=== PATIENT | female | born 1955 | race Caucasian/White ===

== ENCOUNTER 2021-02-04 10:01 | Emergency (ER) | payer BC, MEDICARE ==
[2021-02-04 10:08] VITALS: RESP 18
--- NOTE | 2021-02-04 10:31 | ED ---
Fall HPI - General Chief Complaint: Fall Stated Complaint: fall Source: patient, family, EMS, RN notes reviewed, old records reviewed Mode of arrival: EMS - History of Present Illness Initial Comments: 66-year-old white female patient, alert and oriented 4, presents to the emergency room via EMS with complaints of slipping in water on the tile in the house yesterday morning at 4 AM. Patient is laying on the cart in no apparent distress states that she's received relief with the fentanyl and [facility] given prior to arrival. Patient states that she did the splits and then landed on her right side. She states that she was having difficulty getting up and her had to help her. Her is at bedside, states that he is a physician. She states that she's been having increasing pain with ambulation and it starts in the right buttock and goes through her buttock down the back of her right leg. Patient is able to bend her right leg at a 90 angle and lifted off the bed instability but does complain of pain. Patient denies any incontinence or saddle anesthesia. But she has difficulty with internal or external rotation. She gets minimal relief with [facility] and pain is worse with movement or weightbearing. Patient does have history of obesity, hyperlipidemia, hypertension and she had a kidney transplant she states is in her left lower abdomen. She does take prednisone on a daily basis in addition to CellCept. She has no drug ALLERGIES. 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 yesterday morning) Fall Witnessed: no Place Fall Occurred: home Loss of Consciousness: none Prolonged Down Time?: no Symptoms Prior to Fall: none Location: buttocks Severity scale (1-10): 4 Quality: sharp, other (Shooting) Context: tripped/slipped (Slipped on water from standing landing on her buttock and right side) Associated Symptoms: denies - Related Data Home Medications Medication Instructions Recorded Confirmed Allopurinol [Zyloprim] 100 mg PO HS 02/04/21 02/04/21 Atenolol [Tenormin] 50 mg PO BID 02/04/21 02/04/21 Atorvastatin [Lipitor] 20 mg PO HS 02/04/21 02/04/21 Biotin 5 mg PO DAILY 02/04/21 02/04/21 Calcimate 800mg 1,600 mg PO BID 02/04/21 02/04/21 Enalapril [Vasotec] 15 mg PO BID 02/04/21 02/04/21 Ezetimibe [Zetia] 10 mg PO HS 02/04/21 02/04/21 Famotidine [Pepcid] 20 mg PO DAILY 02/04/21 02/04/21 Furosemide [Lasix] 20 mg PO HS 02/04/21 02/04/21 Furosemide [Lasix] 40 mg PO DAILY 02/04/21 02/04/21 Losartan [Cozaar] 50 mg PO BID 02/04/21 02/04/21 Magnesium Oxide [Mag-Ox] 400 mg PO HS 02/04/21 02/04/21 Multivitamins, Thera [Multivitamin 1 tab PO DAILY 02/04/21 02/04/21 (formulary)] Potassium Chloride ER [K-Dur 10] 20 meq PO BID 02/04/21 02/04/21 Solifenacin Succinate [Vesicare] 10 mg PO DAILY 02/04/21 02/04/21 amLODIPine [Norvasc] 2.5 mg PO DAILY 02/04/21 02/04/21 cycloSPORINE, MODIFIED [Neoral] 75 mg PO HS 02/04/21 02/04/21 cycloSPORINE, MODIFIED [Neoral] 100 mg PO DAILY 02/04/21 02/04/21 hydrALAZINE HCL [Apresoline] 50 mg PO BID 02/04/21 02/04/21 mycophenolate mofetiL [Cellcept] 1,000 mg PO BID 02/04/21 02/04/21 predniSONE 5 mg PO DAILY 02/04/21 02/04/21 Previous Rx's Medication Instructions Recorded HYDROcodone/APAP 5-325MG [[facility] 1 tab PO Q6HR PRN 3 Days #12 tab 02/04/21 5-325] predniSONE 50 mg PO DAILY #5 tab 02/04/21 Allergies Allergy/AdvReac Type Severity Reaction Status Date / Time No Known Allergies Allergy Verified 02/04/21 11:18 Review of Systems ROS Statement: Those systems with pertinent positive or pertinent negative responses have been documented in the HPI. ROS Other: All systems not noted in ROS Statement are negative. Past Medical History Past Medical History: Hyperlipidemia, Hypertension History of Any Multi-Drug Resistant Organisms: None Reported Past Surgical History: Breast Surgery Additional Past Surgical History / Comment(s): parathyroid surgery; kidney transplant; breast reduction Past Psychological History: No Psychological Hx Reported Smoking Status: Former smoker Past Alcohol Use History: Occasional Past Drug Use History: None Reported General Exam Limitations: no limitations General appearance: alert, in no apparent distress Head exam: Present: atraumatic, normocephalic, normal inspection Eye exam: Present: normal appearance, PERRL, EOMI. Absent: scleral icterus, conjunctival injection, periorbital swelling Pupils: Present: normal accommodation ENT exam: Present: normal exam, normal oropharynx, mucous membranes moist Neck exam: Present: normal inspection, full ROM. Absent: tenderness, meningismus, lymphadenopathy, thyromegaly Respiratory exam: Present: normal lung sounds bilaterally. Absent: respiratory distress, wheezes, rales, rhonchi, stridor, chest wall tenderness, accessory muscle use, decreased breath sounds, prolonged expiratory Cardiovascular Exam: Present: regular rate, normal rhythm, normal heart sounds. Absent: systolic murmur, diastolic murmur, rubs, gallop, clicks, JVD GI/Abdominal exam: Present: soft, normal bowel sounds. Absent: distended, tenderness, guarding, rebound, rigid Rectal exam: Present: deferred Extremities exam: Present: normal inspection, full ROM, normal capillary refill. Absent: tenderness, pedal edema, joint swelling, calf tenderness Right Hip exam: Present: normal inspection, ecchymosis (3 circular areas of redness to the right buttock), pelvic stability. Absent: full ROM, tenderness, swelling, abrasion, deformity, crepitus, dislocation, external rotation, internal rotation, shortening Upper Leg exam: Present: normal inspection, tenderness (Pain behind the right thigh buttock) Knee exam: Present: normal inspection, pain/laxity with valgus, pain/laxity with varus. Absent: swelling, abrasion, laceration Lower Leg exam: Present: normal inspection Ankle exam: Present: normal inspection Foot/Toe exam: Present: normal inspection Neurovascular tendon exam: Present: no vascular compromise. Absent: pulse def icit, abnormal cap refill, extremity cold to touch, pallor, foot drop Back exam: Present: normal inspection. Absent: tenderness, CVA tenderness (R), CVA tenderness (L), muscle spasm, paraspinal tenderness, vertebral tenderness, rash noted Expanded Back exam: Absent: saddle anesthesia Back exam: Positive Straight Leg Raise: Right, Negative Straight Leg Raising: Left Neurological exam: Present: alert, oriented X3, CN II-XII intact Psychiatric exam: Present: normal affect, normal mood Skin exam: Present: warm, dry, intact, normal color. Absent: rash, cyanosis, diaphoretic, erythema Course Vital Signs 02/04/21 10:02 Temperature 98.2 F Pulse Rate 66 Respiratory 18 Rate Blood Pressure 119/65 O2 Sat by Pulse 93 L Oximetry Medical Decision Making - Medical Decision Making Patient has no history of pre-existing back problems. She has no saddle anesthesia or loss of bowel or bladder incontinence. She has no history of cancers. Denies fevers, nausea vomiting or diarrhea. There is no evidence of foot drop or any other neuro deficits. Lumbar spine shows facet arthropathy with mid to lower lumbar spine with multilevel degenerative disc disease but no vertebral fracture collapse or malalignment. Pelvis and right hip with no osseous abnormalities seen. The SI joints appear symmetric and intact. The pubic symphysis shows mild degenerative spurring. There is no acute fracture or subluxation or dislocation. Due to the mechanism with patient states during the "splits" this is likely musculoskeletal. states that a short dose of steroids and [facility] with follow-up to ortho is an agreeable plan of care. Case discussed with Dr. Adorno. Disposition Clinical Impression: Musculoskeletal back pain, Fall Disposition: HOME SELF-CARE Condition: Fair Instructions (If sedation given, give patient instructions): Fall Prevention (ED) Additional Instructions: Take the prednisone and [facility] as prescribed. Follow-up with orthopedics this week. Return to the emergency room with worsening pain, any numbness or tingling or inability to hold your urine or bowels. Prescriptions: HYDROcodone/APAP 5-325MG [[facility] 5-325] 1 tab PO Q6HR PRN 3 Days #12 tab PRN Reason: Pain predniSONE 50 mg PO DAILY #5 tab Is patient prescribed a controlled substance at d/c from ED?: Yes Referrals: Hansel Wilde MD [Primary Care Provider] - 1-2 days Reza Huang PAC [PHYSICIAN [employer]] - 1-2 days Time of Disposition: 12:03
--- NOTE | 2021-02-04 11:25 | XR ---
EXAMINATION TYPE: XR lumbosacral spine 5 views XR AP pelvis and 2 views right hip DATE OF EXAM: 02/04/2021 Comparison: None Clinical History: 66-year-old female lower back pain and right hip pain after fall Findings: Lumbar spine: 5 lumbar type vertebral bodies. Facet arthropathy mid to lower lumbar spine. Mild multilevel degenera tive disc disease. Vertebral body heights are preserved and alignment is maintained. Pelvis and right hip: SI joints appear symmetric and intact as does the pubic symphysis. Mild degenerative spurring at the pubic symphysis. Hips are symmetric and intact. No acute fracture, subluxation, dislocation seen. Mul tiple pelvic phleboliths. Impression: 1. Lumbar spine: Facet arthropathy mid to lower lumbar spine. Mild multilevel degenerative disc disea se. No vertebral compression collapse or malalignment. 2. Pelvic and right hip: No acute osseous abnormality seen.
[2021-02-04] MEDS ORDERED: methylPREDNISolone SOD SUCCI 125 MG/2 ML VIAL IV STA (12:03)
[2021-02-04 12:21] VITALS: BP 111/67; PULSE 64; TEMP 98.7
== END 2021-02-04 12:38 | disposition home or self-care (01) ==
LOC: EC 10:01
DX: M54.5 Low back pain (principal); M25.551 Pain in right hip; I10 Essential (primary) hypertension; E78.5 Hyperlipidemia, unspecified; Z87.891 Personal history of nicotine dependence; W01.0XXA Fall on same level from slipping, tripping and stumbling without subsequent striking against object, initial encounter; Y92.009 Unspecified place in unspecified non-institutional (private) residence as the place of occurrence of the external cause
CPT/HCPCS: 72110; 73502; 99284; 96374; J2930

== ENCOUNTER → 2024-03-07 | Outpatient (CLI) | payer MEDICARE, BC | END | disposition home or self-care (01) | LOC: LABPRL 09:17 | PROVIDERS: ATTEND Nurse Practitioner Family | DX: I10 Essential (primary) hypertension | CPT/HCPCS: 80053; 80061; 82043; 82306; 82570; 82607; 83036; 83735; 84443; 85025 ==

== ENCOUNTER 2024-06-21 16:34 | Observation (INO) | payer MEDICARE, BC ==
--- NOTE | 2024-06-21 16:54 | ED ---
General Adult HPI - General Chief complaint: Shortness of Breath Stated complaint: SOB Time Seen by Provider: 06/21/24 16:54 Source: patient Mode of arrival: ambulatory - History of Present Illness Initial comments: 69-year-old female presenting with chief complaint of shortness of breath. This has been ongoing throughout the day today. States that earlier when she was feeling short of breath she used her home pulse ox and noted that she was 82%. It took a while to get back up into the 90s while she was resting. Patient has had a cough for the last 3 weeks, has been a dry cough. She has swelling to the bilateral lower extremities, she is currently on Lasix. She has no chest pain. Patient does have history of kidney transplant back in 2000, also currently has breast cancer and is receiving oral chemo. No fever. No abdominal pain, nausea, vomiting. No palpitations or dizziness. - Related Data Home Medications Medication Instructions Recorded Confirmed Atorvastatin [Lipitor] 20 mg PO HS 02/04/21 09/25/22 Calcimate 800mg 1,600 mg PO BID 02/04/21 09/25/22 Enalapril [Vasotec] 15 mg PO BID 02/04/21 09/25/22 Ezetimibe [Zetia] 10 mg PO HS 02/04/21 09/25/22 Furosemide [Lasix] 20 mg PO HS 02/04/21 09/25/22 Furosemide [Lasix] 40 mg PO DAILY 02/04/21 09/25/22 Losartan [Cozaar] 50 mg PO BID 02/04/21 09/25/22 Magnesium Oxide [Mag-Ox] 400 mg PO HS 02/04/21 09/25/22 Potassium Chloride ER [K-Dur 10] 20 meq PO DAILY 02/04/21 09/25/22 Solifenacin Succinate [Vesicare] 10 mg PO DAILY 02/04/21 09/25/22 allopurinoL [Zyloprim] 100 mg PO HS 02/04/21 09/25/22 amLODIPine [Norvasc] 2.5 mg PO DAILY 02/04/21 09/25/22 atenoloL [Tenormin] 50 mg PO BID 02/04/21 09/25/22 cycloSPORINE, MODIFIED [Neoral] 100 mg PO BID 02/04/21 09/25/22 hydrALAZINE HCL [Apresoline] 50 mg PO TID 02/04/21 09/25/22 predniSONE 5 mg PO DAILY 02/04/21 09/25/22 Multivit-Min/FA/Lycopen/Lutein 1 tab PO DAILY 09/25/22 09/25/22 [Centrum Silver Tablet] Potassium Chloride ER [K-Dur 10] 30 meq PO HS 09/25/22 09/25/22 mycophenolate mofetiL [Cellcept] 750 mg PO BID 09/25/22 09/25/22 Previous Rx's Medication Instructions Recorded Amoxic-Pot Clav 875-125Mg 1 tab PO Q12HR 10 Days #20 tab 09/25/22 [Augmentin 875-125] Allergies Allergy/AdvReac Type Severity Reaction Status Date / Time No Known Allergies Allergy Verified 06/21/24 16:45 Review of Systems ROS Statement: Those systems with pertinent positive or pertinent negative responses have been documented in the HPI. ROS Other: All systems not noted in ROS Statement are negative. Past Medical History Past Medical History: Hyperlipidemia, Hypertension Additional Past Medical History / Comment(s): kidney dx History of Any Multi-Drug Resistant Organisms: None Reported Past Surgical History: Breast Surgery Additional Past Surgical History / Comment(s): parathyroid surgery; kidney transplant; breast reduction. rotator cuff sx. breast ca lump removed left side Past Psychological History: No Psychological Hx Reported Smoking Status: Former smoker Past Alcohol Use History: Occasional Past Drug Use History: None Reported General Exam - General Exam Comments Initial Comments: Visual Physical Exam Vital signs reviewed General: Well-appearing, nontoxic, no acute distress. Head: Normocephalic, atraumatic Eyes: PERRLA, EOMI ENT: Airway patent Chest: Nonlabored breathing Skin: No visual rash, normal skin tone Neuro: Alert and oriented 3 Musculoskeletal: No gross abnormalities General appearance: alert, in no apparent distress Head exam: Present: atraumatic, normocephalic, normal inspection Eye exam: Present: normal appearance, EOMI Neck exam: Present: normal inspection. Absent: meningismus Respiratory exam: Present: rales (Bases). Absent: respiratory distress, wheezes, rhonchi, stridor Cardiovascular Exam: Present: regular rate, normal rhythm, normal heart sounds. Absent: systolic murmur, diastolic murmur, rubs, gallop, clicks Extremities exam: Present: pedal edema Neurological exam: Present: alert, oriented X3 Psychiatric exam: Present: normal affect, normal mood Skin exam: Present: warm, dry Course Vital Signs 06/21/24 06/21/24 06/21/24 16:40 20:40 22:01 Temperature 97.9 F 97.9 F Pulse Rate 77 65 63 Respiratory 18 16 16 Rate Blood Pressure 169/82 138/71 117/67 O2 Sat by Pulse 95 95 95 Oximetry Medical Decision Making - Medical Decision Making I performed the quick note portion of this visit, electronically signed Christine Bailon PA-C Was pt. sent in by a medical professional or institution (, [facility], [employer]ATE PREPARER APPRENTICE, urgent care, hospital, or senior care...) When possible be specific @ -No Did you speak to anyone other than the patient for history (EMS, parent, family, police, friend...)? What history was obtained from this source @ -No Did you review nursing and triage notes (agree or disagree)? Why? @ -I reviewed and agree with nursing and triage notes Were old charts reviewed (outside hosp., previous admission, EMS record, old EKG, old radiological studies, urgent care reports/EKG's, senior care records)? Report findings @ -No old charts were reviewed Differential Diagnosis (chest pain, altered mental status, abdominal pain women, abdominal pain men, vaginal bleeding, weakness, fever, dyspnea, syncope, headache, dizziness, GI bleed, back pain, seizure, CVA, palpatations, mental health, musculoskeletal)? @ -MDM Differential Dyspnea: Coronary syndrome, arrhythmia, tamponade, asthma, COPD, pulmonary embolism, pneumonia, pneumothorax, pulmonary effusion, anaphylaxis, diabetic ketoacidosis, flailed chest, pulmonary contusion, diaphragmatic rupture, anemia, neur omuscular this is not meant to be an all-inclusive list. EKG interpreted by me (3pts min.). @ -EKG shows sinus rhythm ventricular rate 69. ID interval 190. QRS 97. QT 395. QTc 414. X-rays interpreted by me (1pt min.). @ -Chest x-ray shows minimally mild pulmonary vascular congestive changes CT interpreted by me (1pt min.). @ -None done U/S interpreted by me (1pt. min.). @ -None done What testing was considered but not performed or refused? (CT, X-rays, U/S, labs)? Why? @ -None What meds were considered but not given or refused? Why? @ -None Did you discuss the management of the patient with other professionals (professionals i.e. , PA, [employer]ATE PREPARER APPRENTICE, lab, RT, psych nurse, older adult social work specialist, play reader, teacher, employment officer, clinical case manager)? Give summary @ -I spoke with Marily Craig from [facility] who accepts admission Was smoking cessation discussed for >3mins.? @ -No Was critical care preformed (if so, how long)? @ -No Were there social determinants of health that impacted care today? How? (Homelessness, low income, unemployed, alcoholism, drug addiction, transportation, low edu. Level, literacy, decrease access to med. care, senior living, rehab)? @ -No Was there de-escalation of care discussed even if they declined (Discuss DNR or withdrawal of care, Hospice)? DNR status @ -No What co-morbidities impacted this encounter? (DM, HTN, Smoking, COPD, CAD, Cancer, CVA, ARF, Chemo, Hep., AIDS, mental health diagnosis, sleep apnea, morbid obesity)? @ -None Was patient admitted / discharged? Hospital course, mention meds given and route, prescriptions, significant lab abnormalities, going to OR and other pertinent info. @ -69-year-old female presenting with chief complaint of dyspnea, worse on exertion. Admits to lower extremity swelling. No history of CHF. On exam there is pitting edema of the bilateral lower extremities. There are some rales heard at the bases of the lung ramon. Chest x-ray shows mild pulmonary vascular congestion changes. Negative troponin. BNP 205. Ambulatory oxygen saturation is obtained, patient does drop to 92% and feels winded. Patient would feel most comfortable having an observation stay to ensure her symptoms do not get worse. I believe this is reasonable. She will be admitted, I discussed this case with my attending Dr. Ramirez Undiagnosed new problem with uncertain prognosis? @ -No Drug Therapy requiring intensive monitoring for toxicity (Heparin, Nitro, Insulin, Cardizem)? @ -No Were any procedures done? @ -No Diagnosis/symptom? @ -CHF, fluid overload Acute, or Chronic, or Acute on Chronic? @ -Acute Uncomplicated (without systemic symptoms) or Complicated (systemic symptoms)? @ -Complicated Side effects of treatment? @ -No Exacerbation, Progression, or Severe Exacerbation? @ -No Poses a threat to life or bodily function? How? (Chest pain, [place], [place], pneumonia, PE, COPD, DKA, ARF, appy, cholecystitis, CVA, Diverticulitis, Homicidal, Suicidal, threat to staff... and all critical care pts) @ -Yes - Lab Data Result diagrams: 06/21/24 17:16 06/21/24 17:16 Lab Results 06/21/24 06/21/24 06/21/24 Range/Units 17:16 17:16 17:16 WBC 5.8 (3.8-10.6) k/uL RBC 4.36 (3.80-5.40) m/uL Hgb 12.9 (11.4-16.0) gm/dL Hct 40.1 (34.0-46.0) % MCV 91.9 (80.0-100.0) fL MCH 29.7 (25.0-35.0) pg MCHC 32.3 (31.0-37.0) g/dL RDW 13.3 (11.5-15.5) % Plt Count 240 (150-450) k/uL MPV 7.2 Sodium 140 (137-145) mmol/L Potassium 4.1 (3.5-5.1) mmol/L Chloride 104 (98-107) mmol/L Carbon Dioxide 28 (22-30) mmol/L Anion Gap 8 mmol/L BUN 27 H (7-17) mg/dL Creatinine 1.11 H (0.52-1.04) mg/dL Est GFR (CKD-EPI)AfAm 60 (>60 ml/min/1.73 sqM) Est GFR (CKD-EPI)NonAf 52 (>60 ml/min/1.73 sqM) Glucose 151 H (74-99) mg/dL Calcium 9.2 (8.4-10.2) mg/dL Total Bilirubin 0.4 (0.2-1.3) mg/dL AST 30 (14-36) U/L ALT 26 (4-34) U/L Alkaline Phosphatase 94 (38-126) U/L Troponin I <0.012 (0.000-0.034) ng/mL NT-Pro-B Natriuret Pep 205 pg/mL Total Protein 6.7 (6.3-8.2) g/dL Albumin 4.3 (3.5-5.0) g/dL Disposition Clinical Impression: Congestive heart failure Disposition: ADMITTED IP TO THIS HOSP Condition: Fair Time of Disposition: 21:44
--- NOTE | 2024-06-21 17:36 | XR ---
EXAMINATION TYPE: XR chest 2V DATE OF EXAM: 06/21/2024 5:31 PM COMPARISON: None available. CLINICAL INDICATION: Female, 69 years old with history of sob; [facility] TECHNIQUE: XR chest 2V Frontal and lateral views of the chest. FINDINGS: Cardiomegaly. No acute focal consolidation. Mild pulmonary vascular congestion. No sizable pleural effusion. Thoracic spine degenerative changes. No pneumothorax. IMPRESSION: Minimally mild pulmonary vascular congestive changes. [facility], , 06/21/2024 5:34 PM
[2024-06-21 17:52] LABS: HCT 40.1 % (34.0-46.0); HGB 12.9 gm/dL (11.4-16.0); MCH 29.7 pg (25.0-35.0); MCHC 32.3 g/dL (31.0-37.0); MCV 91.9 fL (80.0-100.0); Mean Platelet Volume 7.2; Platelet Count 240 k/uL (150-450); RBC 4.36 m/uL (3.80-5.40); RDW 13.3 % (11.5-15.5); WBC 5.8 k/uL (3.8-10.6)
[2024-06-21 18:01] LABS: ALT 26 U/L (4-34); AST 30 U/L (14-36); African American GFR (CKD) 60 (>60 ml/min/1.73 sqM); Albumin 4.3 g/dL (3.5-5.0); Alkaline Phosphatase 94 U/L (38-126); Anion Gap 8 mmol/L; Blood Urea Nitrogen 27 mg/dL (7-17); Calcium 9.2 mg/dL (8.4-10.2); Carbon Dioxide 28 mmol/L (22-30); Chloride 104 mmol/L (98-107); Glucose 151 mg/dL (74-99); Non-African American GFR(CKD) 52 (>60 ml/min/1.73 sqM); Potassium 4.1 mmol/L (3.5-5.1); Sodium 140 mmol/L (137-145); Total Bilirubin 0.4 mg/dL (0.2-1.3); Total Protein 6.7 g/dL (6.3-8.2)
[2024-06-21 18:11] LABS: NT-Pro-B-Type Natriuretic Pept 205 pg/mL
[2024-06-21] MEDS: FUROSEMIDE 10 MG/ML 4 ML VIAL IV STA (21:39)
[2024-06-21] MEDS ORDERED: NALOXONE 0.4 MG/ML 1 ML VIAL IV PRN (21:43)
--- NOTE | 2024-06-22 11:04 | P.CRDCN ---
History of Present Illness Consult date: 06/22/24 History of present illness: HISTORY OF PRESENTING ILLNESS 69-year-old female with past medical history of renal transplant, breast cancer s/p lumpectomy and lymph node removed from the left side, who recently had right shoulder rotator cuff repair surgery. This time she presented the hospital because she noticed that she was having swelling in bilateral lower extremity for 3 to 4 days along with associated dyspnea on exertion, shortness of breath and hypoxia when she noticed her pulse ox at home. ECG shows sinus rhythm, She shows me a photograph of her legs which showed significant swelling in the legs. She reports improvement of them with 1 dose of IV Lasix. REVIEW OF SYSTEMS 14 point review of system is negative except what is mentioned above in HPI. PHYSICAL EXAMINATION Vital signs reviewed. Head: Normocephalic. Eyes: Sclerae nonicteric. Neck: Brisk carotid upstroke, no jugular venous distention. Lungs: Clear to auscultation. Heart: Regular rate and rhythm, S1-S2, no S3, no murmur or rub. Abdomen: Soft nontender, positive bowel sounds. Extremities: 1+ pitting edema Neuro: Alert, oritented, no focal deficits. Detailed neuro exam was not perfor med. ASSESSMENT Acute hypoxic respiratory failure Bilateral lower extremity edema suspect CHF exacerbation Recent rotator cuff repair surgery Status post breast cancer lumpectomy with left side lymph node resection. Status post chest radiation S/p renal transplant PLAN Appreciate recommendations from nephrology team Continue diuretics Continue renal transplant medications Continue Lipitor, Zetia, losartan Obtain echocardiogram Obtain labs, troponin, NT proBNP, lipids, HbA1c, TSH, admission level Obtain records from Kevin Mchugh MD, [facility], [place] Thank you for allowing [facility] to participate in this patient's care. Feel free to reach out in case of any followup questions. Past Medical History Past Medical History: Hyperlipidemia, Hypertension Additional Past Medical History / Comment(s): kidney dx History of Any Multi-Drug Resistant Organisms: None Reported Past Surgical History: Breast Surgery Additional Past Surgical History / Comment(s): parathyroid surgery; kidney transplant; breast reduction. rotator cuff sx. breast ca lump removed left side Past Psychological History: No Psychological Hx Reported Smoking Status: Former smoker Past Alcohol Use History: Occasional Past Drug Use History: None Reported Medications and Allergies Home Medications Medication Instructions Recorded Confirmed Type Atorvastatin [Lipitor] 20 mg PO HS 02/04/21 06/22/24 History Calcimate 800mg 1,600 mg PO BID 02/04/21 06/22/24 History Enalapril [Vasotec] 15 mg PO BID 02/04/21 06/22/24 History Ezetimibe [Zetia] 10 mg PO HS 02/04/21 06/22/24 History Furosemide [Lasix] 20 mg PO HS 02/04/21 06/22/24 History Furosemide [Lasix] 40 mg PO DAILY 02/04/21 06/22/24 History Losartan [Cozaar] 50 mg PO BID 02/04/21 06/22/24 History allopurinoL [Zyloprim] 100 mg PO HS 02/04/21 06/22/24 History atenoloL [Tenormin] 50 mg PO BID 02/04/21 06/22/24 History cycloSPORINE, MODIFIED [Neoral] 125 mg PO DAILY 02/04/21 06/22/24 History hydrALAZINE HCL [Apresoline] 50 mg PO TID@0800,1400,2100 02/04/21 06/22/24 History predniSONE 5 mg PO DAILY 02/04/21 06/22/24 History Multivit-Min/FA/Lycopen/Lutein 1 tab PO DAILY 09/25/22 06/22/24 History [Centrum Silver Tablet] mycophenolate mofetiL [Cellcept] 500 mg PO BID 09/25/22 06/22/24 History ALPRAZolam [Xanax] 0.25 mg PO DAILY PRN 06/22/24 06/22/24 History Famotidine [Pepcid] 20 mg PO HS 06/22/24 06/22/24 History Letrozole 2.5 mg PO DAILY 06/22/24 06/22/24 History Mirabegron [Myrbetriq] 50 mg PO DAILY 06/22/24 06/22/24 History Potassium Chloride 20 meq PO BID 06/22/24 06/22/24 History Sertraline [Zoloft] 50 mg PO HS 06/22/24 06/22/24 History amLODIPine [Norvasc] 7.5 mg PO DAILY 06/22/24 06/22/24 History cycloSPORINE, MODIFIED [Neoral] 100 mg PO HS 06/22/24 06/22/24 History Allergies Allergy/AdvReac Type Severity Reaction Status Date / Time No Known Allergies Allergy Verified 06/22/24 10:27 Physical Exam Vitals: Vital Signs Temp Pulse Pulse Resp BP BP Pulse Ox 06/22/24 06:55 98.6 F 67 16 125/84 93 L 06/22/24 02:00 98.1 F 74 17 112/70 93 L 06/21/24 23:57 98.2 F 72 17 150/79 97 06/21/24 22:01 63 16 117/67 95 06/21/24 20:40 97.9 F 65 16 138/71 95 06/21/24 16:40 97.9 F 77 18 169/82 95 Intake and Output 06/21/24 06/22/24 06/22/24 22:59 06:59 14:59 Intake Total 118 Balance 118 Intake: Oral 118 Other: # Voids 1 Weight 95.254 kg 95.254 kg Results 06/21/24 17:16 06/21/24 17:16 Cardiac Enzymes 06/21/24 06/21/24 Range/Units 17:16 17:16 AST 30 (14-36) U/L Troponin I <0.012 (0.000-0.034) ng/mL CBC 06/21/24 Range/Units 17:16 WBC 5.8 (3.8-10.6) k/uL RBC 4.36 (3.80-5.40) m/uL Hgb 12.9 (11.4-16.0) gm/dL Hct 40.1 (34.0-46.0) % Plt Count 240 (150-450) k/uL Comprehensive Metabolic Panel 06/21/24 Range/Units 17:16 Sodium 140 (137-145) mmol/L Potassium 4.1 (3.5-5.1) mmol/L Chloride 104 (98-107) mmol/L Carbon Dioxide 28 (22-30) mmol/L BUN 27 H (7-17) mg/dL Creatinine 1.11 H (0.52-1.04) mg/dL Glucose 151 H (74-99) mg/dL Calcium 9.2 (8.4-10.2) mg/dL AST 30 (14-36) U/L ALT 26 (4-34) U/L Alkaline Phosphatase 94 (38-126) U/L Total Protein 6.7 (6.3-8.2) g/dL Albumin 4.3 (3.5-5.0) g/dL Current Medications Generic Name Dose Route Start Last Admin Trade Name Freq PRN Reason Stop Dose Admin Naloxone HCl 0.2 mg 06/21/24 21:43 Naloxone 0.4 Mg/Ml 1 Ml Vial IV Q2M PRN Opioid Reversal Intake and Output 06/21/24 06/22/24 06/22/24 22:59 06:59 14:59 Intake Total 118 Balance 118 Intake: Oral 118 Other: # Voids 1 Weight 95.254 kg 95.254 kg 06/21/24 17:16 06/21/24 17:16
[2024-06-22] MEDS ORDERED: ALPRAZolam 0.25 MG TAB PO PRN (12:05)
[2024-06-22] MEDS: SERTRALINE 50 MG TAB PO SCH (19:45)
[2024-06-22] MEDS: atenoloL 50 MG TAB PO SCH (19:45)
[2024-06-22] MEDS: EZETIMIBE 10 MG TAB PO SCH (19:45)
[2024-06-22] MEDS: allopurinoL 100 MG TAB PO SCH (19:46)
[2024-06-22] MEDS: ATORVASTATIN 20 MG TAB PO SCH (19:46)
[2024-06-22] MEDS: FUROSEMIDE 10 MG/ML 2 ML VIAL IV SCH (19:46)
[2024-06-22] MEDS: FAMOTIDINE 20 MG TAB PO SCH (19:46)
--- NOTE | 2024-06-22 20:04 | P.HPIM ---
History of Present Illness Patient is a pleasant 69 years old female with past medical history of multiple medical problems occluding hypertension, hyperlipidemia, history of kidney transplant and chronic kidney disease Presents because of shortness of breath and bilateral leg swelling. It has been going on for few days Patient denies chest pain No GI/ symptoms. No headache dizziness weakness or numbness Also patient is non-smoker no alcohol no illicit drugs Her vital stable, her oxygen was required on admission but currently she is saturating 96% on room air. She is afebrile Labs including CBC, BMP, LFT and troponin all are negative. Creatinine slightly borderline at 1.1 proBNP is 205 Chest x-ray showing cardiomegaly with pulmonary vascular congestion, looks mild. But also there is some COPD changes EKG showing sinus rhythm at [address]-T changes Review of Systems Review of systems CONSTITUTIONAL: No fever, no malaise, no fatigue. HEENT: No recent visual problems or hearing problems. Denied any sore throat. CARDIOVASCULAR: No orthopnea, PND, no palpitations, no syncope. PULMONARY: No chest wall tenderness, no hemoptysis. GASTROINTESTINAL: No diarrhea, no nausea, no vomiting, no abdominal pain. Normoactive bowel sounds. NEUROLOGICAL: No headaches, no weakness, no numbness. HEMATOLOGICAL: Denies any bleeding or petechiae. GENITOURINARY: Denies any burning micturition, frequency, or urgency. MUSCULOSKELETAL/RHEUMATOLOGICAL: Denies any joint pain, swelling, or any muscle pain. ENDOCRINE: Denies any polyuria or polydipsia. Past Medical History Past Medical History: Hyperlipidemia, Hypertension Additional Past Medical History / Comment(s): kidney dx History of Any Multi-Drug Resistant Organisms: None Reported Past Surgical History: Breast Surgery Additional Past Surgical History / Comment(s): parathyroid surgery; kidney transplant; breast reduction. rotator cuff sx. breast ca lump removed left side Past Psychological History: No Psychological Hx Reported Smoking Status: Former smoker Past Alcohol Use History: Occasional Past Drug Use History: None Reported Medications and Allergies Home Medications Medication Instructions Recorded Confirmed Type Atorvastatin [Lipitor] 20 mg PO HS 02/04/21 06/22/24 History Calcimate 800mg 1,600 mg PO BID 02/04/21 06/22/24 History Enalapril [Vasotec] 15 mg PO BID 02/04/21 06/22/24 History Ezetimibe [Zetia] 10 mg PO HS 02/04/21 06/22/24 History Furosemide [Lasix] 20 mg PO HS 02/04/21 06/22/24 History Furosemide [Lasix] 40 mg PO DAILY 02/04/21 06/22/24 History Losartan [Cozaar] 50 mg PO BID 02/04/21 06/22/24 History allopurinoL [Zyloprim] 100 mg PO HS 02/04/21 06/22/24 History atenoloL [Tenormin] 50 mg PO BID 02/04/21 06/22/24 History cycloSPORINE, MODIFIED [Neoral] 125 mg PO DAILY 02/04/21 06/22/24 History hydrALAZINE HCL [Apresoline] 50 mg PO TID@0800,1400,2100 02/04/21 06/22/24 History predniSONE 5 mg PO DAILY 02/04/21 06/22/24 History Multivit-Min/FA/Lycopen/Lutein 1 tab PO DAILY 09/25/22 06/22/24 History [Centrum Silver Tablet] mycophenolate mofetiL [Cellcept] 500 mg PO BID 09/25/22 06/22/24 History ALPRAZolam [Xanax] 0.25 mg PO DAILY PRN 06/22/24 06/22/24 History Famotidine [Pepcid] 20 mg PO HS 06/22/24 06/22/24 History Letrozole 2.5 mg PO DAILY 06/22/24 06/22/24 History Mirabegron [Myrbetriq] 50 mg PO DAILY 06/22/24 06/22/24 History Potassium Chloride 20 meq PO BID 06/22/24 06/22/24 History Sertraline [Zoloft] 50 mg PO HS 06/22/24 06/22/24 History amLODIPine [Norvasc] 7.5 mg PO DAILY 06/22/24 06/22/24 History cycloSPORINE, MODIFIED [Neoral] 100 mg PO HS 06/22/24 06/22/24 History Allergies Allergy/AdvReac Type Severity Reaction Status Date / Time No Known Allergies Allergy Verified 06/22/24 10:27 Physical Exam Vitals: Vital Signs Temp Pulse Pulse Resp BP BP Pulse Ox 06/22/24 06:55 98.6 F 67 16 125/84 93 L 06/22/24 02:00 98.1 F 74 17 112/70 93 L 06/21/24 23:57 98.2 F 72 17 150/79 97 06/21/24 22:01 63 16 117/67 95 06/21/24 20:40 97.9 F 65 16 138/71 95 06/21/24 16:40 97.9 F 77 18 169/82 95 Intake and Output 06/21/24 06/22/24 06/22/24 22:59 06:59 14:59 Intake Total 118 Balance 118 Intake: Oral 118 Other: # Voids 1 Weight 95.254 kg 95.254 kg Results CBC & Chem 7: 06/21/24 17:16 06/21/24 17:16 Labs: Abnormal Lab Results - Last 24 Hours (Table) 06/21/24 Range/Units 17:16 BUN 27 H (7-17) mg/dL Creatinine 1.11 H (0.52-1.04) mg/dL Glucose 151 H (74-99) mg/dL Thrombosis Risk Factor Assmnt - Choose All That Apply Each Factor Represents 1 point: Obesity (BMI >25) Each Risk Factor Represents 2 Points: Age 61-74 years Thrombosis Risk Factor Assessment Total Risk Factor Score: 3 Thrombosis Risk Factor Assessment Level: Moderate Risk Assessment and Plan Assessment: Acute CHF suspected Hypertension Hyperlipidemia Chronic kidney disease stage III Obesity History of kidney transplant Plan: Patient was started on IV Lasix 20 mg twice daily , This can be switched to oral dose tomorrow Resume his atenolol. Continue with immunotherapy with prednisone and other medication for kidney transplant Cardiac team consult DuoNebs and inhaler therapy Labs and medication were reviewed.. Continue same treatment. Continue with symptomatic treatment. Resume home medication. Monitor labs and vitals. DVT and GI prophylaxis. Further recommendations as per clinical course of the patient DVT prophylaxis: Subcutaneous heparin GI Prophylaxis: Pepcid
[2024-06-22] MEDS: HEPARIN SODIUM,PORCINE 5,000 UNIT/ML 1 ML VIAL SQ SCH (20:25)
[2024-06-22 23:15] LABS: NT-Pro-B-Type Natriuretic Pept 154 pg/mL (0-125)
[2024-06-22 23:24] LABS: BUN/Creat Ratio 20.91 Ratio (12.00-20.00); Calcium 9.1 mg/dL (8.7-10.3); Carbon Dioxide 28.1 mmol/L (21.6-31.8); Chloride 103 mmol/L (96-109); Chol/HDL Ratio 2.13 Ratio; Glucose 242 mg/dL (70-110); LDL Cholesterol,Calculated 66.4 mg/dL (0.0-131.0); Magnesium 1.5 mg/dL (1.5-2.4); Potassium 3.7 mmol/L (3.5-5.5); Sodium 144 mmol/L (135-145)
[2024-06-23 07:49] VITALS: BP 129/68; RESP 16; TEMP 97.6
[2024-06-23 07:53] LABS: Basophils % (A) 1 %; Eosinophils # (A) 0.1 k/uL (0-0.7); Eosinophils % (A) 3 %; HGB 12.2 gm/dL (11.4-16.0); Lymphocytes # (A) 1.7 k/uL (1.0-4.8); Lymphocytes % (A) 37 %; MCH 30.3 pg (25.0-35.0); MCHC 33.1 g/dL (31.0-37.0); MCV 91.5 fL (80.0-100.0); Mean Platelet Volume 7.3; Monocytes # (A) 0.4 k/uL (0-1.0); Monocytes % (A) 9 %; Neutrophils # (A) 2.2 k/uL (1.3-7.7); Neutrophils % (A) 47 %; Platelet Count 203 k/uL (150-450); RBC 4.04 m/uL (3.80-5.40); RDW 13.1 % (11.5-15.5); WBC 4.7 k/uL (3.8-10.6)
[2024-06-23 08:06] LABS: African American GFR (CKD) 65 (>60 ml/min/1.73 sqM); Anion Gap 5 mmol/L; Blood Urea Nitrogen 24 mg/dL (7-17); Calcium 8.6 mg/dL (8.4-10.2); Carbon Dioxide 32 mmol/L (22-30); Chloride 101 mmol/L (98-107); Glucose 127 mg/dL (74-99); Non-African American GFR(CKD) 56 (>60 ml/min/1.73 sqM); Potassium 3.6 mmol/L (3.5-5.1); Sodium 138 mmol/L (137-145)
--- NOTE | 2024-06-23 08:10 | CA ---
Transthoracic Echo Report Name: Mariam Silver Age: 69 Gender: F : 1955 Exam Date: 06/22/2024 14:55 Exam Location: [facility] Ht (in): 62 Wt (lb): 210 Ordering Physician: Olayinka Mchugh MD ([id number]) Attending/Referring Phys: Operations Analyst Ninfa Lamb RDCS Procedure CPT: Indications: chf Cardiac Hx: Technical Quality: Fair Contrast 1: Total Dose (mL): Contrast 2: Total Dose (mL): MEASUREMENTS (Male / Female) Normal Values 2D ECHO LV Diastolic Diameter PLAX 5.1 cm 4.2 - 5.9 / 3.9 - 5.3 cm LV Systolic Diameter PLAX 2.6 cm IVS Diastolic Thickness 1.1 cm 0.6 - 1.0 / 0.6 - 0.9 cm LVPW Diastolic Thickness 0.9 cm 0.6 - 1.0 / 0.6 - 0.9 cm LV Relative Wall Thickness 0.4 RV Internal Dim ED PLAX 3.3 cm LVOT Diameter 2.0 cm LV Diastolic Volume MOD BP 77.9 cm??? 67 - 155 / 56 - 104 cm??? LV Systolic Volume MOD BP 31.3 cm??? 22 - 58 / 19 - 49 cm??? LV Ejection Fraction MOD BP 59.9 % >= 55 % LV Cardiac Index MOD BP 1405.3 cm???/min???m??? LV Diastolic Volume MOD 4C 101.0 cm??? LV Systolic Volume MOD 4C 36.1 cm??? LV Ejection Fraction MOD 4C 64.2 % LV Cardiac Index MOD 4C 1955.4 cm???/min???m??? LV Diastolic Length 4C 8.0 cm LV Systolic Length 4C 6.7 cm LV Diastolic Volume MOD 2C 57.9 cm??? LV Systolic Volume MOD 2C 26.9 cm??? LV Ejection Fraction MOD 2C 53.6 % LV Cardiac Index MOD 2C 935.8 cm???/min???m??? LV Diastolic Length 2C 8.3 cm LV Systolic Length 2C 6.8 cm LA Volume 52.5 cm??? 18 - 58 / 22 - 52 cm??? LA Volume Index 25.1 cm???/m??? 16 - 28 cm???/m??? DOPPLER AV Peak Velocity 143.3 cm/s AV Peak Gradient 8.2 mmHg AV Mean Velocity 96.2 cm/s AV Mean Gradient 4.2 mmHg AV Velocity Time Integral 29.7 cm AI Peak Velocity 380.2 cm/s AI Peak Gradient 57.8 mmHg AI Pressure Half Time 510.9 ms LVOT Peak Velocity 94.3 cm/s LVOT Peak Gradient 3.6 mmHg LVOT Velocity Time Integral 22.6 cm LVOT Stroke Volume 71.8 cm??? LVOT Stroke Volume Index 36.8 ml/m??? LVOT Cardiac Index 2164.5 cm???/min???m??? AV Area Cont Eq vti 2.4 cm??? AV Area Cont Eq pk 2.1 cm??? MV Area PHT 4.3 cm??? Mitral E Point Velocity 104.1 cm/s Mitral A Point Velocity 74.1 cm/s Mitral E to A Ratio 1.4 MV Deceleration Time 178.2 ms MV E' Velocity 7.9 cm/s Mitral E to MV E' Ratio 13.2 TR Peak Velocity 158.4 cm/s TR Peak Gradient 10.0 mmHg Right Ventricular Systolic Press 15.0 mmHg FINDINGS Left Ventricle Normal Left ventricular size, wall thickness, systolic function with no obvious regional wall motion abnormalities. Normal Left ventricular diastolic filling pattern. Left ventricular ejection fraction is estimated at 60 %. Right Ventricle Normal RV size. Normal right ventricular function. Normal TAPSEright ventricular systolic pressure within normal limits. Right Atrium Normal right atrial size. Left Atrium Normal left atrial size. Mitral Valve Structurally normal mitral valve. Mild mitral annular calcification. Mild mitral regurgitation. Aortic Valve Trileaflet aortic valve. No aortic stenosis. Diffuse thickening (sclerosis) of the aortic valve cusps without reduced excursion. Trace aortic regurgitation. Tricuspid Valve Structurally normal tricuspid valve. Mild tricuspid regurgitation. Pulmonic Valve Structurally normal pulmonic valve. Mild pulmonic regurgitation. Pericardium No pericardial effusion. Aorta Normal size aortic root and proximal ascending aorta. CONCLUSIONS LVEF 55 to 60% No obvious regional wall motion abnormality Mild mitral regurgitation Mild tricuspid regurgitation Normal RV size and systolic function, normal RVSP. Previewed by: Dr Olayinka Mchugh (Electronically Signed) Final Date: 23 June 2024 08:09
[2024-06-23] MEDS: predniSONE 5 MG TAB PO SCH (08:18)
--- NOTE | 2024-06-23 08:47 | P.PN ---
Subjective Progress Note Date: 06/23/24 HISTORY OF PRESENTING ILLNESS 69-year-old female with past medical history of renal transplant, breast cancer s/p lumpectomy and lymph node removed from the left side, who recently had right shoulder rotator cuff repair surgery. This time she presented the hospital because she noticed that she was having swelling in bilateral lower extremity for 3 to 4 days along with associated dyspnea on exertion, shortness of breath and hypoxia when she noticed her pulse ox at home. ECG shows sinus rhythm, She shows me a photograph of her legs which showed significant swelling in the legs. She reports improvement of them with 1 dose of IV Lasix. Progress note June 23 Patient is seen and examined at bedside this a.m. Patient's swelling in the legs have improved with IV diuretics. Kidney function is stayed stable. Echocardiogram showed preserved LV systolic function no major valvular abnormality. PHYSICAL EXAMINATION Vital signs reviewed. Head: Normocephalic. Eyes: Sclerae nonicteric. Neck: Brisk carotid upstroke, no jugular venous distention. Lungs: Clear to auscultation. Heart: Regular rate and rhythm, S1-S2, no S3, no murmur or rub. Abdomen: Soft nontender, positive bowel sounds. Extremities: 1+ pitting edema Neuro: Alert, oritented, no focal deficits. Detailed neuro exam was not perf ormed. ASSESSMENT Acute hypoxic respiratory failure Bilateral lower extremity edema, likely fluid overload from mild HFpEF exacerbation and poor renal clearance. Recent rotator cuff repair surgery Status post breast cancer lumpectomy with left side lymph node resection. Status post chest radiation S/p renal transplant Cardiac testing Echo showed preserved LV size and systolic function with no major valvular abnormality PLAN Continue Lipitor, Zetia, losartan Obtain records from Kevin Mortensen Consider discharging on low-dose diuretic and SGLT2. Appreciate nephrology recommendations. Objective - Vital Signs Vital signs: Vital Signs Temp 97.6 F 06/23/24 07:00 Pulse 58 L 06/23/24 07:00 Resp 16 06/23/24 07:00 BP 129/68 06/23/24 07:00 Pulse Ox 95 06/23/24 07:00 FiO2 Intake & Output 06/22/24 06/23/24 06/23/24 18:59 06:59 18:59 Intake Total 476 Balance 476 Intake: Oral 476 Other: # Voids 2 2 - Labs CBC & Chem 7: 06/23/24 07:32 06/23/24 07:32 Labs: Abnormal Lab Results - Last 24 Hours (Table) 06/22/24 06/22/24 06/23/24 Range/Units 11:35 11:35 07:32 Carbon Dioxide 32 H (22-30) mmol/L Anion Gap 12.90 H (4.00-12.00) mmol/L BUN 24 H (7-17) mg/dL Est GFR (CKD-EPI) 55 L (>=60) BUN/Creatinine Ratio 20.91 H (12.00-20.00) Ratio Glucose 242 H 127 H (70-110) mg/dL Hemoglobin A1c 6.7 H (<=6.0) % NT-Pro-B Natriuret Pep 154 H (0-125) pg/mL HDL Cholesterol 82.80 H (40.00-60.00) mg/dL TSH 0.228 L (0.350-5.500) UIU/ML
[2024-06-23 09:36] VITALS: PULSE 62
--- NOTE | 2024-06-23 11:38 | P.NPCON ---
History of Present Illness - History of Present Illness patient is a 69-year-old female with history of living related renal allograft in 2000 at [facility]. 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 Baseline creatinine is around 1 mg/dL. She was admitted to the hospital with complaints of increased leg swelling and shortness of breath. Patient was noted to be in volume overload and has been diuresed. Serum creatininestaying at 1.1-1.0 mg/dL. Echocardiogram showed EF at 60%. Volume status has improved with improvement in leg swelling. Patient denies any shortness of breath today. Maintained on cyclosporine, CellCept and prednisone. Past Medical History Past Medical History: Hyperlipidemia, Hypertension Additional Past Medical History / Comment(s): kidney dx History of Any Multi-Drug Resistant Organisms: None Reported Past Surgical History: Breast Surgery Additional Past Surgical History / Comment(s): parathyroid surgery; kidney transplant; breast reduction. rotator cuff sx. breast ca lump removed left side Past Psychological History: No Psychological Hx Reported Smoking Status: Former smoker Past Alcohol Use History: Occasional Past Drug Use History: None Reported Medications and Allergies Home Medications Medication Instructions Recorded Confirmed Type Atorvastatin [Lipitor] 20 mg PO HS 02/04/21 06/22/24 History Calcimate 800mg 1,600 mg PO BID 02/04/21 06/22/24 History Enalapril [Vasotec] 15 mg PO BID 02/04/21 06/22/24 History Ezetimibe [Zetia] 10 mg PO HS 02/04/21 06/22/24 History Furosemide [Lasix] 20 mg PO HS 02/04/21 06/22/24 History Furosemide [Lasix] 40 mg PO DAILY 02/04/21 06/22/24 History Losartan [Cozaar] 50 mg PO BID 02/04/21 06/22/24 History allopurinoL [Zyloprim] 100 mg PO HS 02/04/21 06/22/24 History atenoloL [Tenormin] 50 mg PO BID 02/04/21 06/22/24 History cycloSPORINE, MODIFIED [Neoral] 125 mg PO DAILY 02/04/21 06/22/24 History hydrALAZINE HCL [Apresoline] 50 mg PO TID@0800,1400,2100 02/04/21 06/22/24 History predniSONE 5 mg PO DAILY 02/04/21 06/22/24 History Multivit-Min/FA/Lycopen/Lutein 1 tab PO DAILY 09/25/22 06/22/24 History [Centrum Silver Tablet] mycophenolate mofetiL [Cellcept] 500 mg PO BID 09/25/22 06/22/24 History ALPRAZolam [Xanax] 0.25 mg PO DAILY PRN 06/22/24 06/22/24 History Famotidine [Pepcid] 20 mg PO HS 06/22/24 06/22/24 History Letrozole 2.5 mg PO DAILY 06/22/24 06/22/24 History Mirabegron [Myrbetriq] 50 mg PO DAILY 06/22/24 06/22/24 History Potassium Chloride 20 meq PO BID 06/22/24 06/22/24 History Sertraline [Zoloft] 50 mg PO HS 06/22/24 06/22/24 History amLODIPine [Norvasc] 7.5 mg PO DAILY 06/22/24 06/22/24 History cycloSPORINE, MODIFIED [Neoral] 100 mg PO HS 06/22/24 06/22/24 History Allergies Allergy/AdvReac Type Severity Reaction Status Date / Time No Known Allergies Allergy Verified 06/22/24 10:27 Physical Exam Vitals: Vital Signs Temp Pulse Pulse Resp BP Pulse Ox 06/23/24 09:31 58 L 62 16 06/23/24 07:00 97.6 F 58 L 16 129/68 95 06/23/24 01:29 98.1 F 62 17 143/72 93 L 06/22/24 20:00 98.2 F 68 17 121/70 91 L 06/22/24 13:45 98.8 F 67 16 122/81 96 Intake and Output 06/22/24 06/23/24 06/23/24 22:59 06:59 14:59 Intake Total 118 Balance 118 Intake: Oral 118 Other: # Voids 2 patient is awake, comfortable, no acute distress. Examination of the heart S1 and S2 Examination of the lungs bilateral breath sounds are heard Abdomen is soft nontender Examination of lower extremities shows no significant edema DOCK BUILDER exam grossly intact Results - Lab Results Most recent lab results Calcium 8.6 mg/dL (8.4-10.2) 06/23/24 07:32 Magnesium 1.5 mg/dL (1.5-2.4) 06/22/24 11:35 06/23/24 07:32 06/23/24 07:32 Assessment and Plan Assessment: 1. Status post living related renal transplant from brother in 2000 at [facility]. Maintained on cyclosporine CellCept and prednisone. Renal function at baseline with creatinine at 1.1-1.0 mg/dL. Cyclosporine level will be ordered. 2. Volume overload status post diuresis 3. hypertension, controlled Plan: check cyclosporine trough level Patient is advised to follow-up with transplant post discharge Continue current diuretics Discussed salt and fluid restriction and adjustment of diuretics based on weight
--- NOTE | 2024-06-23 18:44 | P.DS ---
Providers Date of admission: 06/21/24 21:44 Attending physician: Paty Ching Consults: 06/22/24 03:22 Consult Physician Routine Consulting Provider: Gaston Perkins Consult Reason/Comments: chf Do you want consulting provider notified?: Yes, Notify in am 06/22/24 11:05 Consult Physician Routine Consulting Provider: Janine Gao Consult Reason/Comments: Renal transplant , fluid overload Do you want consulting provider notified?: Yes Primary care physician: Olga Lidia Gomes Hospital Course: Diagnoses Acute CHF suspected, with preserved ejection fraction and no WMA on echocardiogram Hypertension Hyperlipidemia Chronic kidney disease stage III Obesity History of kidney transplant Hospital course: Patient is a pleasant 69 years old female with past medical history of multiple medical problems occluding hypertension, hyperlipidemia, history of kidney transplant and chronic kidney disease Presents because of shortness of breath and bilateral leg swelling. It has been going on for few days Chest x-ray showing cardiomegaly with pulmonary vascular congestion, looks mild. But also there is some COPD changes Patient was found to have acute mild CHF, she was evaluated by administrative processor and auto self service station attendant. Patient resume her home medication including kidney transplant immunosuppressive medication. Also she received IV Lasix, patient was doing well clinically and today she denies any chest pain or dyspnea or exertional dyspnea, no coughing, no new GI/ symptom, no fever or chills, no other new complaint and patient states she feels fine and wants to go home Case discussed with cardiology and nephrology team with the staff and both cleared her for discharge Patient also on multiple antihypertensive medication, patient was instructed to resume all her blood pressure medication except the Norvasc which might contribute to her leg swelling, her blood pressure was well-controlled prior to discharge. This was explained specifically to the patient and she verbalized understanding and acceptance Problems and management plan were discussed with the patient and he verbalized understanding and acceptance Patient was found stable and can be discharged home in guarded prognosis however he needs follow-up as an outpatient. Patient was instructed to follow up with PCP Dr. Siria ocx within one week and patient agrees Patient was instructed to follow-up with her auto self service station attendant Dr. So as she explains at [facility] within 1 week, other than that she was asked to follow-up with in 1 week and instead if she agrees, she prefers to follow-up at [facility] Patient was instructed to follow-up with administrative processor Dr. Mchugh in 1 to 2 weeks and she agrees Upon discharge patient can continue on her oral dose of Lasix at home Physical exam Gen: patient is a AAOx3, no distress CVS: S1-S2, RRR, no murmur Lungs: B/L CTA, no wheezing Abdomen: soft, no distention, no tenderness, positive bowel sounds Extremity: no leg edema or induration Time spent more than 35 minutes Patient Condition at Discharge: Fair Plan - Discharge Summary New Discharge Prescriptions: Continue predniSONE 5 mg PO DAILY cycloSPORINE, MODIFIED [Neoral] 125 mg PO DAILY Furosemide [Lasix] 20 mg PO HS Ezetimibe [Zetia] 10 mg PO HS atenoloL [Tenormin] 50 mg PO BID Multivit-Min/FA/Lycopen/Lutein [Centrum Silver Tablet] 1 tab PO DAILY mycophenolate mofetiL [Cellcept] 500 mg PO BID cycloSPORINE, MODIFIED [Neoral] 100 mg PO HS Losartan [Cozaar] 50 mg PO BID #60 tab Furosemide [Lasix] 40 mg PO DAILY Atorvastatin [Lipitor] 20 mg PO HS allopurinoL [Zyloprim] 100 mg PO HS Calcimate 800mg 1,600 mg PO BID ALPRAZolam [Xanax] 0.25 mg PO DAILY PRN PRN Reason: Anxiety Famotidine [Pepcid] 20 mg PO HS Letrozole 2.5 mg PO DAILY Mirabegron [Myrbetriq] 50 mg PO DAILY Potassium Chloride 20 meq PO BID Sertraline [Zoloft] 50 mg PO HS Discontinued hydrALAZINE HCL [Apresoline] 50 mg PO TID@0800,1400,2100 Enalapril [Vasotec] 15 mg PO BID amLODIPine [Norvasc] 7.5 mg PO DAILY Discharge Medication List Atorvastatin [Lipitor] 20 mg PO HS 02/04/21 [History] Calcimate 800mg 1,600 mg PO BID 02/04/21 [History] Ezetimibe [Zetia] 10 mg PO HS 02/04/21 [History] Furosemide [Lasix] 20 mg PO HS 02/04/21 [History] Furosemide [Lasix] 40 mg PO DAILY 02/04/21 [History] allopurinoL [Zyloprim] 100 mg PO HS 02/04/21 [History] atenoloL [Tenormin] 50 mg PO BID 02/04/21 [History] cycloSPORINE, MODIFIED [Neoral] 125 mg PO DAILY 02/04/21 [History] predniSONE 5 mg PO DAILY 02/04/21 [History] Multivit-Min/FA/Lycopen/Lutein [Centrum Silver Tablet] 1 tab PO DAILY 09/25/22 [History] mycophenolate mofetiL [Cellcept] 500 mg PO BID 09/25/22 [History] ALPRAZolam [Xanax] 0.25 mg PO DAILY PRN 06/22/24 [History] Famotidine [Pepcid] 20 mg PO HS 06/22/24 [History] Letrozole 2.5 mg PO DAILY 06/22/24 [History] Mirabegron [Myrbetriq] 50 mg PO DAILY 06/22/24 [History] Potassium Chloride 20 meq PO BID 06/22/24 [History] Sertraline [Zoloft] 50 mg PO HS 06/22/24 [History] cycloSPORINE, MODIFIED [Neoral] 100 mg PO HS 06/22/24 [History] Losartan [Cozaar] 50 mg PO BID #60 tab 06/23/24 [Rx] Follow up Appointment(s)/Referral(s): Olayinka Mchugh MD [Medical Doctor] - 2 Weeks Janine Gao MD [STAFF PHYSICIAN] - 1 Week Olga Lidia Gomes MD [Primary Care Provider] - 1-2 days (Follow-up with your appointment this week as you inform the medical team) Activity/Diet/Wound Care/Special Instructions: Heart healthy diet Activity is restricted till you see your doctor We recommend to follow-up with your auto self service station attendant Dr. So at [facility] in 1 week. You have the contact information as you inform medical team Please continue your blood pressure medication atenolol, losartan, enalapril, hydralazine, oral Lasix (all at your original home doses) We recommend to keep holding your Norvasc 7.5 mg as it caused leg swelling. Keep monitoring your blood pressure and follow-up with your doctor in 1 to 2 days Discharge Disposition: HOME SELF-CARE
== END 2024-06-23 13:58 | disposition home or self-care (01) ==
LOC: EC 16:34 → 6NMEDSUR 21:44
PROVIDERS: ADMIT Hospitalist; ATTEND Hospitalist
DX: J96.01 Acute respiratory failure with hypoxia (principal); I13.2 Hypertensive heart and chronic kidney disease with heart failure and with stage 5 chronic kidney disease, or end stage renal disease; I50.33 Acute on chronic diastolic (congestive) heart failure; N18.6 End stage renal disease; C50.919 Malignant neoplasm of unspecified site of unspecified female breast; E78.5 Hyperlipidemia, unspecified; E66.9 Obesity, unspecified; Z68.38 Body mass index [BMI] 38.0-38.9, adult; Z87.891 Personal history of nicotine dependence; Z92.3 Personal history of irradiation; Z94.0 Kidney transplant status; Z79.899 Other long term (current) drug therapy
CPT/HCPCS: 96376 ×2; 96374; 99285; 36415; 93005; 93306; 84439; 83880 ×2; 80061; 80053; 80048 ×2; 84443; 83735; 84484 ×2; 85025; 85027; 83036; 71046; G0378 ×3; J1940 ×3; J7517; J7515; J7512